=== PATIENT | male | born 1970 | race Caucasian/White ===

== ENCOUNTER 2023-03-16 01:23 | Inpatient (IN) | payer OTHER ==
[2023-03-16] VITALS (12 sets, daily range): BP systolic 124–141; BP diastolic 81–101
[~2023-03-16] VITALS: Ht 180.3 cm; Wt 102.7 kg
[2023-03-16] MEDS ORDERED: Aspir 8181 MG PO (01:47)
[2023-03-16] MEDS ORDERED: DIPH50 PO (01:48)
[2023-03-16 02:00] LABS: BASOPHILS ABSOLUTE AUTO 0.08 K/mm3 (0.00-0.23); BASOPHILS PERCENT AUTO 1 % (0-2); EOSINOPHILS ABSOLUTE AUTO 0.42 K/mm3 (0.00-0.68); EOSINOPHILS PERCENT AUTO 4 % (0-6); Hematocrit 44.7 % (37.0-53.0); Hemoglobin 15.6 g/dL (13.5-17.5); IMMATURE GRAN ABSOLUTE AUTO 0.02 K/mm3 (0.00-0.10); IMMATURE GRAN PERCENT AUTO 0 % (0-1); LYMPHOCYTES ABSOLUTE AUTO 1.83 K/mm3 (0.84-5.20); LYMPHOCYTES PERCENT AUTO 17 % (21-46); MONOCYTES PERCENT AUTO 5 % (4-13); Mean Corpuscular HGB 31.1 pg (26.0-34.0); Mean Corpuscular HGB Conc 34.9 g/dL (31.5-36.5); Mean Corpuscular Volume 89 fL (80-100); Mean Platelet Volume 10.1 fL (9.1-12.4); NEUTROPHILS ABSOLUTE AUTO 8.15 K/mm3 (1.96-9.15); NEUTROPHILS PERCENT AUTO 73 % (41-73); Platelet Count 266 K/mm3 (150-400); RDW Coefficient Variation 12.1 % (11.7-14.2); RDW Standard Deviation 39.5 fL (35.1-46.3); Red Blood Cell Count 5.02 M/mm3 (4.30-5.90)
[2023-03-16 02:17] LABS: Albumin, Blood 3.8 g/dL (3.4-5.0); Bilirubin, Total 0.8 mg/dL (0.1-1.0); Bun/Creatinine Ratio 17.5 (12.0-20.0); Calcium, Blood 9.2 mg/dL (8.5-10.1); Creatinine, Blood 0.97 mg/dL (0.60-1.20); Globulin, Blood 3.7 g/dL (2.2-4.0); Potassium, Blood 3.6 mmol/L (3.5-5.5); Total Protein, Blood 7.5 g/dL (6.4-8.2)
[2023-03-16 05:12] LABS: BASOPHILS ABSOLUTE AUTO 0.07 K/mm3 (0.00-0.23); BASOPHILS PERCENT AUTO 1 % (0-2); EOSINOPHILS ABSOLUTE AUTO 0.44 K/mm3 (0.00-0.68); EOSINOPHILS PERCENT AUTO 4 % (0-6); Hematocrit 44.3 % (37.0-53.0); Hemoglobin 15.6 g/dL (13.5-17.5); IMMATURE GRAN ABSOLUTE AUTO 0.04 K/mm3 (0.00-0.10); IMMATURE GRAN PERCENT AUTO 0 % (0-1); LYMPHOCYTES ABSOLUTE AUTO 1.83 K/mm3 (0.84-5.20); LYMPHOCYTES PERCENT AUTO 17 % (21-46); MONOCYTES ABSOLUTE AUTO 0.57 K/mm3 (0.16-1.47); MONOCYTES PERCENT AUTO 5 % (4-13); Mean Corpuscular HGB Conc 35.2 g/dL (31.5-36.5); Mean Corpuscular Volume 88 fL (80-100); NEUTROPHILS ABSOLUTE AUTO 7.57 K/mm3 (1.96-9.15); NEUTROPHILS PERCENT AUTO 72 % (41-73); Platelet Count 266 K/mm3 (150-400); RDW Coefficient Variation 12.2 % (11.7-14.2); RDW Standard Deviation 39.3 fL (35.1-46.3); Red Blood Cell Count 5.03 M/mm3 (4.30-5.90); White Blood Cell Count 10.52 K/mm3 (4.00-11.30)
[2023-03-16 05:48] LABS: Albumin, Blood 3.6 g/dL (3.4-5.0); Bilirubin, Total 0.9 mg/dL (0.1-1.0); Bun/Creatinine Ratio 17.8 (12.0-20.0); Calcium, Blood 8.9 mg/dL (8.5-10.1); Creatinine, Blood 0.9 mg/dL (0.60-1.20); Globulin, Blood 3.6 g/dL (2.2-4.0); Potassium, Blood 3.7 mmol/L (3.5-5.5); Total Protein, Blood 7.2 g/dL (6.4-8.2)
--- NOTE | 2023-03-16 06:13 | NUR ---
A/OX4; CALM /COOPERATIVE. TELE: SR WITH HR IN 80s. ELEVATED DBP (139/93 ON ADMISSION TO MEDICAL). DENIES CHEST PAIN AT THIS TIME. NO SOB OBSERVED AT REST. IND IN ROOM. CALLS APPROPRIATELY. AT BEDSIDE. SLEEP PROMOTED. CALL LIGHT IN REACH; ENCOURAGED TO MAKE NEEDS KNOWN.
--- NOTE | 2023-03-16 08:06 | NUR ---
VERBAL FROM DR. MURILLO TO PLACE NPO ORDER EXCEPT MEDS.
--- NOTE | 2023-03-16 08:12 | NUR ---
VERBAL AT BEDSIDE W/PATIENT TO GIVE ALL MEDS TO PATIENT TODAY EXCEPT HIS LOVENOX. NPO EXCEPT MEDS W/SIPS OF WATER W/MEDS.
--- NOTE | 2023-03-16 13:07 | NUR ---
REPORT GIVEN TO MAHENDRA MEDELLIN IN PCU. ALL QUESTIONS ANSWERED.
--- NOTE | 2023-03-16 13:25 | NUR ---
TRANSFER NOTE PT TO PCU 15 ACCOMPANIED BY HEALTH LEAD TEAM AND FAMILY. PT IS ALERT AND ORIENTATED. DENIES CHEST PAIN, SHORTNESS OF BREATH, DIZZINESS, OR NAUSEA. INFORMED PT ON LIMITATIONS OF THE R WRIST REGARDING TR BAND. NO GROSS ABNORMALITIES AROUND ANGIOGRAM SITE. VITAL SIGNS ARE STABLE. I AGREE WITH THE PREVIOUS NURSE'S SHIFT ASSESSMENT. WILL MONITOR PER POST ANGIOGRAM PROTOCOL.
--- NOTE | 2023-03-16 16:20 | NUR ---
TRANSFER NOTE REPORT CALLED TO FARHANA VILLA RN, AT [facility]. [facility] CALLED FOR TRANSPORTATION. CONSENT FOR TRANSFER SIGNED BY PATIENT. PT'S SPO2 WAS 89%, PT STARTED ON 2L VIA NC, WITH RETURN TO 97% SPO2. EMS ARRIVED AT 1618. PT BELONGINGS WITH PTS SPOUSE. PT REMAINS ALERT AND ORIENATED, DENIES CP, SOB, DIZZINESS, NAUSEA.
--- NOTE | 2023-03-16 18:30 | NUR ---
I have reviewed the nursing students documentation and am in agreement.
== END 2023-03-16 16:18 | disposition short-term general hospital (02) | DRG 280 ==
LOC: ER 01:23 → MEDS 01:24 → PCU 01:24 → MEDS 04:56 → PCU 12:58
PROVIDERS: Emergency Medicine; ADMIT Student in an Organized Health Care Education/Training Program
PROC: 4A023N8 Measurement of Cardiac Sampling and Pressure, Bilateral, Percutaneous Approach (ICD-10-PCS; principal; 2023-03-16)
PROC: B211YZZ Fluoroscopy of Multiple Coronary Arteries using Other Contrast (ICD-10-PCS; 2023-03-16)
DX: I21.4 Non-ST elevation (NSTEMI) myocardial infarction (principal); I50.41 Acute combined systolic (congestive) and diastolic (congestive) heart failure; I42.9 Cardiomyopathy, unspecified; I35.0 Nonrheumatic aortic (valve) stenosis; E66.9 Obesity, unspecified; I20.9 Angina pectoris, unspecified; Q24.9 Congenital malformation of heart, unspecified; I45.10 Unspecified right bundle-branch block; Z87.891 Personal history of nicotine dependence; Z79.82 Long term (current) use of aspirin; Z68.31 Body mass index [BMI] 31.0-31.9, adult; Z79.899 Other long term (current) drug therapy; Z86.79 Personal history of other diseases of the circulatory system; Z79.01 Long term (current) use of anticoagulants
CPT/HCPCS: 36415; 71045; 76937; 80053; 83880; 84484; 85025; 93005; 93010; 93306; 93454; 96374; 96376; 99152; 99153; 99285-25; A9270; C1769; C1887; C1894; G0378; J1644; J1940; J2250; J3010; J7030; J7050; Q9967

== ENCOUNTER → 2023-04-03 | Outpatient (CLI) | payer OTHER ==
[~2023-04-03] MED LIST: Aspir 8181 MG PO; DIPH50 PO
[2023-04-03 17:19] LABS: International Normalized Ratio 1.36
== END | disposition home or self-care (01) ==
LOC: LAB 15:32 → LAB SHORT 15:32
PROVIDERS: Physician Assistant
DX: I35.9 Nonrheumatic aortic valve disorder, unspecified (principal)
CPT/HCPCS: 85610